=== PATIENT | female | born 1930 | race Asian ===

== ENCOUNTER → 2018-01-21 | Outpatient (CLI) | payer MEDICARE | END | disposition home or self-care (01) | LOC: PCVCCLINIC 11:46 | PROVIDERS: ATTEND Internal Medicine Cardiovascular Disease | DX: I10 Essential (primary) hypertension (principal); E78.00 Pure hypercholesterolemia, unspecified; E11.9 Type 2 diabetes mellitus without complications; Z79.4 Long term (current) use of insulin | CPT/HCPCS: 80061; 93005; G0463 ==

== ENCOUNTER → 2018-10-21 | Outpatient (CLI) | payer MEDICARE ==
--- NOTE | 2018-10-21 13:31 | PCVCIMAG ---
APPROVED REPORT Study performed: 10/21/2018 10:24:00 EXAM: Comprehensive 2D, Doppler, and color-flow Echocardiogram Patient Location: Echo lab Status: routine BSA: 1.66 HR: 60 bpmBP: 128/82 mmHg Rhythm: NSR Other Information Study Quality: Adequate Risk Factors: Cardiac Risk Factors: HTN, Hyperlipidemia, DM 2D Dimensions IVSd: 11.98 (7-11mm)LVOT Diam: 20.00 (18-24mm) LVDd: 33.26 mm PWd: 10.00 (7-11mm)Ascending Ao: 28.17 (22-36mm) LVDs: 21.02 (25-40mm) Left Atrium: 45.72 (27-40mm) Aortic Root: 25.20 mm LV Single Plane 4CH: 57.36 % LV Single Plane 2CH: 62.54 % Biplane EF: 58.6 % Volumes Left Atrial Volume (Systole) Single Plane 4CH: 40.82 mLSingle Plane 2CH: 23.71 mL LA ESV Index: 20.00 mL/m2 Aortic Valve AoV Peak Inderjit.: 1.55 m/s AO Peak Gr.: 9.60 mmHgLVOT Max P.14 mmHg LVOT Max V: 1.02 m/s AMAURY Vmax: 2.08 cm2 Mitral Valve E/A Ratio: 0.7 MV Decel. Time: 334.17 ms MV E Max Inderjit.: 0.99 m/s MV A Inderjit.: 1.48 m/s IVRT: 48.44 ms TDI E/Lateral E': 14.14E/Medial E': 16.50 Medial E' Inderjit.: 0.06 m/s Lateral E' Inderjit.: 0.07 m/s Pulmonary Valve PV Peak Inderjit.: 0.74 m/sPV Peak Gr.: 2.17 mmHg Pulmonary Vein P Vein S: 0.68 m/sP Vein A: 0.21 m/s P Vein D: 0.31 m/sP Vein A Dur.: 93.4 msec P Vein S/D Ratio: 2.19 Tricuspid Valve TR Peak Inderjit.: 2.36 m/sRAP Estimate: 7.00 mmHg TR Peak Gr.: 22.33 mmHg PA Pressure: 29.00 mmHg Left Ventricle The left ventricle is normal size. There is normal LV segmental wall motion. Borderline concentric left ventricular hypertrophy. Left ventricular systolic function is normal. The left ventricular ejection fraction is within the normal range. LVEF is 60-65%. Mild diastolic dysfunction is present (impaired relaxation pattern). Right Ventricle The right ventricle is normal size. The right ventricular systolic function is normal. Atria The left atrium size is normal. The right atrium size is normal. Aortic Valve The Aortic valve is sclerotic. Trace to mild aortic regurgitation. There is no aortic valvular stenosis. Mitral Valve There is mitral annular calcification. Mild mitral regurgitation. No evidence of mitral valve stenosis. Tricuspid Valve The tricuspid valve is normal in structure. Mild tricuspid regurgitation. Pulmonary artery pressure is 29 mmHg. Pulmonic Valve The pulmonary valve is normal in structure. There is no pulmonic valvular regurgitation. Great Vessels The aortic root is normal in size. IVC is normal in size and collapses >50% with inspiration. Pericardium There is no pericardial effusion. <Conclusion> The left ventricle is normal size. Borderline concentric left ventricular hypertrophy. LVEF is 60-65%. Mild diastolic dysfunction is present (impaired relaxation pattern). The left atrium size is normal. The Aortic valve is sclerotic. Trace to mild aortic regurgitation. There is mitral annular calcification. Mild mitral regurgitation. Mild tricuspid regurgitation. Pulmonary artery pressure is 29 mmHg. The aortic root is normal in size. There is no pericardial effusion.
== END | disposition home or self-care (01) ==
LOC: PCVCIMAG 09:19
PROVIDERS: ATTEND Internal Medicine Cardiovascular Disease
DX: I08.3 Combined rheumatic disorders of mitral, aortic and tricuspid valves (principal); I25.10 Atherosclerotic heart disease of native coronary artery without angina pectoris; I10 Essential (primary) hypertension; E78.00 Pure hypercholesterolemia, unspecified; E11.9 Type 2 diabetes mellitus without complications; E03.9 Hypothyroidism, unspecified
CPT/HCPCS: 36415; 80061; 93005; 93306; G0463